=== PATIENT | male | born 1970 | race Caucasian/White ===

== ENCOUNTER 2016-11-09 07:59 | Emergency (ER) | payer OTHER ==
[~2016-11-09 07:59] MED LIST: ASAB PO; COREG6 PO; COZAAR100 MG PO; DEPAK250ER PO; NORCO1 TA1 PO; VITAMIN D1000 UNI1 PO
[2016-11-09 08:09] LABS: BASOPHILS 0.3 %; BASOPHILS ABSOLUTE 0.02 10/3/uL (0.0-0.16); EOSINOPHILS 4.6 %; EOSINOPHILS ABSOLUTE 0.32 10/3/uL (0.0-0.53); ER CBC TAT 0 Hrs 05 Mins; HEMATOCRIT 37.9 % (40.0-51.0); HEMOGLOBIN 13.2 g/dL (13.6-17.8); IMMATURE GRANULOCYTES 0.1 %; IMMATURE GRANULOCYTES ABSOLUTE 0.01 10/3/uL (0.0-0.11); LYMPHOCYTES 38.1 %; LYMPHOCYTES ABSOLUTE 2.67 10/3/uL (0.67-4.30); MANUAL DIFF NO %; MEAN CORPUS HGB CONC 34.8 g/dL (32.0-36.0); MEAN CORPUSCULAR HEMOGLOB 29.3 pg (26.0-34.0); MEAN CORPUSCULAR VOLUME 84.2 fL (80-100); MONOCYTES 8.1 %; MONOCYTES ABSOLUTE 0.57 10/3/uL (0.21-1.20); NEUTROPHILS 48.8 %; NEUTROPHILS ABSOLUTE 3.41 10/3/uL (2.02-8.40); PLATELET COUNT 187 10/3/uL (150-400)
[2016-11-09 08:15] LABS: INTERNATIONAL NORMAL RATI 1.1 UNITS (-); PARTIAL THROMBO TIME 30.9 SEC (22.5-37.2); PROTIME (NOT ORD) 14.5 SEC (12.0-14.5)
[2016-11-09 08:18] LABS: D-DIMER QUANTITATIVE 0.49 ug/mLFEU (< 0.50)
[2016-11-09 08:24] LABS: BUN (BLOOD UREA NITROGEN) 17 MG/DL (6-23); CALCIUM, SERUM 8.6 MG/DL (8.5-10.4); CHEST PAIN PROFILE TAT 0 Hrs 20 Mins; CHLORIDE, SERUM 109 MMOL/L (96-112); CO2 (CARBON DIOXIDE) 26 MMOL/L (24-34); CREATININE 1.17 MG/DL (0.70-1.30); GFR AFRICAN AMERICAN 87 ML/MIN (>=60); GFR NON AFRICAN AMERICAN 75 ML/MIN (>=60); GLUCOSE, SERUM 93 MG/DL (60-99); SODIUM, SERUM 140 MMOL/L (135-148); TROPONIN I <0.02 NG/ML (<0.05)
== END 2016-11-09 11:00 | disposition home or self-care (01) ==
LOC: ER 07:59
PROVIDERS: Emergency Medicine
DX: R07.89 Other chest pain (principal); R42 Dizziness and giddiness; R11.0 Nausea; I10 Essential (primary) hypertension; Z79.82 Long term (current) use of aspirin; Z79.891 Long term (current) use of opiate analgesic; Z79.899 Other long term (current) drug therapy
CPT/HCPCS: 71275; 80048; 83735; 84484; 85025; 85379; 85610; 85730; 93005; 99285; Q9967